=== PATIENT | female | born 1990 | race Caucasian/White ===

== ENCOUNTER 2019-02-15 19:57 | Emergency (ER) | payer SELFPAY ==
[2019-02-15] MEDS ORDERED: FENTANYL CITR 100 MCG/2 ML ONE (20:16)
[2019-02-15] MEDS ORDERED: ONDANSETRON 4 MG/2 ML VIAL ONE (20:17)
[2019-02-15 20:18] LABS: Absolute Lymphocytes (CBC) 3.4 K/uL (0.7-4.9); Basophils % 0.8 % (0-1.3); Eosinophils % 2.1 % (0-4.4); Lymphocytes % 25.4 % (15.3-44.8); MPV 8.2 fL (7.6-11.3); Monocytes % 4.6 % (3.3-12.3); RBC Red Blood Cell Count 5.56 M/uL (3.86-4.86)
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
[2019-02-15 21:53] LABS: Albumin 4.1 g/dL (3.4-5.0); Potassium 3.4 mmol/L (3.5-5.1); Protein, Total 7.7 g/dL (6.4-8.2)
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
== END 2019-02-15 22:51 | disposition home or self-care (01) ==
LOC: ER 19:57
DX: S00.531A Contusion of lip, initial encounter (principal); T14.8XXA Other injury of unspecified body region, initial encounter; M54.89 Other dorsalgia; Y09 Assault by unspecified means; Y93.9 Activity, unspecified; Y92.9 Unspecified place or not applicable; F17.210 Nicotine dependence, cigarettes, uncomplicated
CPT/HCPCS: 36415; 70450; 71260; 72125; 74177; 80053; 85025; 86850; 86900; 86901; 96374; 96375; 99285; J2405; J3010; Q9967